=== PATIENT | male | born 1960 | race Caucasian/White ===

== ENCOUNTER 2016-09-05 14:26 | Inpatient (IN) | payer BC ==
[~2016-09-05] VITALS: Ht 185.4 cm; Wt 129.4 kg
[2016-09-05 15:18] LABS: CHLORIDE 102 mEq/L (99-109); POTASSIUM 4.3 mEq/L (3.7-5.4); SODIUM 137 mEq/L (136-147)
[2016-09-05 15:20] LABS: GLUCOSE 282 mg/dL (70-99)
[2016-09-05 15:21] LABS: ANION GAP 9 MEQ/L (2-14)
[2016-09-05 15:24] LABS: GFR ESTIMATE (CALCULATED) 56 mL/min/
[2016-09-05 15:25] LABS: UREA NITROGEN (BUN) 11 mg/dL (9-23)
[2016-09-05 16:44] LABS: EOSINOPHIL (%) 1.9 % (0-5); EOSINOPHIL COUNT 0.1 K/uL (0-0.3); HEMATOCRIT 37.7 % (38.0-50.0); IMMATURE GRANULOCYTE (%) 0.6 % (0.0-0.7); INSTRUMENT ABS NEUTROPHIL CT 5.6 K/uL; LYMPHOCYTE COUNT 0.9 K/uL (1.0-2.8); MCH 28.9 PG (29.0-34.0); MCHC 35.3 G/DL (30.0-36.0); MCV 81.8 FL (86-99); MONOCYTE (%) 7.2 % (3-12); MONOCYTE COUNT 0.5 K/uL (0-0.8); NEUTROPHIL (%) 76.9 % (45-76); NEUTROPHIL COUNT 5.6 K/uL (1.8-6.4); PLATELET COUNT 222 K/uL (156-360); RBC DIS.WIDTH-CV 12.5 % (11.8-14.6); RBC DIS.WIDTH-SD 37.1 % (39-53); RED BLOOD COUNT 4.61 M/uL (4.00-5.50); WHITE BLOOD COUNT 7.2 K/uL (4.1-10.2)
[2016-09-05] MEDS ORDERED: CRESTOR10 MG PO (17:01)
[2016-09-05] MEDS ORDERED: RAMIPRIL2.5 MG PO (17:01)
[2016-09-05] MEDS ORDERED: LO-DOSE ASPIRIN81 M1 PO (17:01)
[2016-09-05 18:04] VITALS: BP 133/77
[2016-09-05 18:11] LABS: COLOR RED ((YELLOW))
[2016-09-05 18:23] LABS: SPECIFIC GRAVITY 1.017 (1.000-1.030)
[2016-09-05 18:24] LABS: ADD MIUA? YES; BILIRUBIN NEGATIVE; BLOOD LARGE; GLUCOSE (STRIP) 500; KETONES NEGATIVE; LEUKOCYTES NEGATIVE; NITRITE NEGATIVE; PROTEIN (STRIP) 100; UROBILINOGEN 0.2 MG/DL (0.2-1.0)
[2016-09-05 18:31] LABS: RED BLOOD CELLS TNTC /HPF (0-5)
[2016-09-05 20:46] LABS: POINT-OF-CARE METER ID UU13113725
[2016-09-05 23:35] VITALS: BP 132/68
[2016-09-06 06:40] LABS: ANION GAP 8 MEQ/L (2-14); CHLORIDE 104 MEQ/L (99-109); GFR ESTIMATE (CALCULATED) > 59 mL/min/; GLUCOSE 203 mg/dL (70-99); POTASSIUM 4.3 MEQ/L (3.7-5.4); SAMPLE HEMOLYSIS CHECK 0; SAMPLE ICTERIC CHECK 0; SAMPLE LIPEMIA CHECK 0; SODIUM 138 MEQ/L (136-147); UREA NITROGEN (BUN) 10 mg/dL (9-23)
[2016-09-06 06:48] LABS: HEMATOCRIT 36.6 % (38.0-50.0); MCV 82.8 FL (86-99); MEAN PLAT.VOLUME 8.6 uM^3 (9.0-12.4); PLATELET COUNT 216 K/uL (156-360); RBC DIS.WIDTH-CV 12.8 % (11.8-14.6); RED BLOOD COUNT 4.42 M/uL (4.00-5.50); WHITE BLOOD COUNT 7.1 K/uL (4.1-10.2)
[2016-09-06 07:32] VITALS: BP 126/75
[2016-09-06 11:55] LABS: POINT-OF-CARE METER ID UU13113725
[2016-09-06 15:42] VITALS: BP 134/81
[2016-09-06 23:07] VITALS: BP 150/67
[2016-09-07 07:34] VITALS: BP 139/75
[2016-09-07] MEDS ORDERED: AMLODIPINE BESYL5 MG PO (11:13)
[2016-09-07] MEDS ORDERED: LEVEMIR100 UNIT/2 SC (11:13)
[2016-09-07] MEDS ORDERED: LEVEMIR FL100 UNIT/1 SC (12:04)
== END 2016-09-07 13:14 | disposition home or self-care (01) | DRG 700 ==
LOC: EME 14:26 → EDOF 16:23 → 5EAST 16:23
PROVIDERS: Hospitalist; Physician Assistant
DX: N28.89 Other specified disorders of kidney and ureter (principal); R33.9 Retention of urine, unspecified; R31.0 Gross hematuria; N13.30 Unspecified hydronephrosis; N17.9 Acute kidney failure, unspecified; I10 Essential (primary) hypertension; E11.65 Type 2 diabetes mellitus with hyperglycemia; E78.5 Hyperlipidemia, unspecified; Z72.0 Tobacco use
CPT/HCPCS: 71260; 74176; 74177; 80048; 81003; 82948; 85025; 85027; 88108; 99281; 99285; J1815; J7030

== ENCOUNTER 2016-09-10 13:25 | Emergency (ER) | payer BC ==
[~2016-09-10] VITALS: Ht 185.4 cm; Wt 127.1 kg
[~2016-09-10 13:25] MED LIST: AMLODIPINE BESYL5 MG PO; CRESTOR10 MG PO; LEVEMIR FL100 UNIT/1 SC; LEVEMIR100 UNIT/2 SC; LO-DOSE ASPIRIN81 M1 PO; RAMIPRIL2.5 MG PO
[2016-09-10 13:47] LABS: HEMATOCRIT 39.5 % (38.0-50.0); MCH 28.8 PG (29.0-34.0); MCHC 34.9 G/DL (30.0-36.0); MCV 82.3 FL (86-99); MEAN PLAT.VOLUME 8.3 uM^3 (9.0-12.4); PLATELET COUNT 270 K/uL (156-360); RBC DIS.WIDTH-CV 12.5 % (11.8-14.6); WHITE BLOOD COUNT 6.6 K/uL (4.1-10.2)
[2016-09-10 13:55] LABS: CHLORIDE 106 mEq/L (99-109); POTASSIUM 4.2 mEq/L (3.7-5.4); SODIUM 140 mEq/L (136-147)
[2016-09-10 13:56] LABS: GLUCOSE 137 mg/dL (70-99)
[2016-09-10 13:58] LABS: ANION GAP 9 MEQ/L (2-14)
[2016-09-10 14:00] LABS: GFR ESTIMATE (CALCULATED) > 59 mL/min/
[2016-09-10 14:01] LABS: UREA NITROGEN (BUN) 18 mg/dL (9-23)
[2016-09-10 14:27] LABS: ADD MIUA? YES; BILIRUBIN NEGATIVE; BLOOD LARGE; COLOR BLOODY ((YELLOW)); GLUCOSE (STRIP) 100; KETONES TRACE; LEUKOCYTES NEGATIVE; NITRITE NEGATIVE; PH, URINE 7.5 (5-8); PROTEIN (STRIP) >300; SPECIFIC GRAVITY 1.015 (1.000-1.030); UROBILINOGEN 0.2 MG/DL (0.2-1.0)
[2016-09-10 14:28] LABS: RED BLOOD CELLS TNTC /HPF (0-5); UCUL ADDED? YES
[2016-09-10 16:34] VITALS: BP 117/87
== END 2016-09-10 16:36 | disposition home or self-care (01) ==
LOC: EME 13:25
DX: R31.9 Hematuria, unspecified (principal); R33.9 Retention of urine, unspecified; Z85.528 Personal history of other malignant neoplasm of kidney; E11.9 Type 2 diabetes mellitus without complications
CPT/HCPCS: 80048; 81003; 85027; 87077; 87086; 87186; 99281; 99284

== ENCOUNTER 2016-09-10 22:37 | Inpatient (IN) | payer BC ==
[~2016-09-10] VITALS: Ht 185.4 cm; Wt 124.5 kg
[2016-09-11 00:21] LABS: HEMATOCRIT 36.9 % (38.0-50.0); MCHC 35.2 G/DL (30.0-36.0); MCV 82.4 FL (86-99); MEAN PLAT.VOLUME 8.6 uM^3 (9.0-12.4); PLATELET COUNT 240 K/uL (156-360); RBC DIS.WIDTH-CV 12.6 % (11.8-14.6); RBC DIS.WIDTH-SD 37.2 % (39-53); RED BLOOD COUNT 4.48 M/uL (4.00-5.50)
[2016-09-11 00:22] LABS: WHITE BLOOD COUNT 10.2 K/uL (4.1-10.2)
[2016-09-11 00:23] LABS: CHLORIDE 107 mEq/L (99-109); POTASSIUM 4.3 mEq/L (3.7-5.4); SODIUM 139 mEq/L (136-147)
[2016-09-11 00:25] LABS: GLUCOSE 187 mg/dL (70-99)
[2016-09-11 00:26] LABS: ANION GAP 8 MEQ/L (2-14)
[2016-09-11 00:29] LABS: GFR ESTIMATE (CALCULATED) > 59 mL/min/
[2016-09-11 00:30] LABS: UREA NITROGEN (BUN) 20 mg/dL (9-23)
[2016-09-11 04:56] VITALS: BP 129/68
[2016-09-11 06:39] LABS: HEMATOCRIT 36.1 % (38.0-50.0); MCH 28.1 PG (29.0-34.0); MCHC 34.1 G/DL (30.0-36.0); MCV 82.6 FL (86-99); MEAN PLAT.VOLUME 8.7 uM^3 (9.0-12.4); PLATELET COUNT 243 K/uL (156-360); RBC DIS.WIDTH-CV 12.8 % (11.8-14.6); RBC DIS.WIDTH-SD 38.3 % (39-53); RED BLOOD COUNT 4.37 M/uL (4.00-5.50); WHITE BLOOD COUNT 9.1 K/uL (4.1-10.2)
[2016-09-11 06:56] VITALS: BP 118/70
[2016-09-11 09:11] LABS: ANION GAP 7 MEQ/L (2-14); CHLORIDE 104 MEQ/L (99-109); GFR ESTIMATE (CALCULATED) > 59 mL/min/; GLUCOSE 155 mg/dL (70-99); POTASSIUM 4.5 MEQ/L (3.7-5.4); SAMPLE HEMOLYSIS CHECK 0; SAMPLE ICTERIC CHECK 0; SAMPLE LIPEMIA CHECK 0; SODIUM 138 MEQ/L (136-147); UREA NITROGEN (BUN) 18 mg/dL (9-23)
[2016-09-11 09:21] LABS: ADD MIUA? YES; BILIRUBIN NEGATIVE; BLOOD LARGE; COLOR RED ((YELLOW)); GLUCOSE (STRIP) NEGATIVE; KETONES 40; LEUKOCYTES NEGATIVE; NITRITE NEGATIVE; PROTEIN (STRIP) 100; SPECIFIC GRAVITY 1.025 (1.000-1.030); UROBILINOGEN 0.2 MG/DL (0.2-1.0)
[2016-09-11 10:00] LABS: RED BLOOD CELLS TNTC /HPF (0-5); UCUL ADDED? YES
[2016-09-11 15:18] VITALS: BP 124/72
[2016-09-11 17:08] LABS: POINT-OF-CARE METER ID UU13113725
[2016-09-11 21:12] LABS: POINT-OF-CARE METER ID UU13113725
[2016-09-11 23:23] VITALS: BP 131/73
[2016-09-12 07:39] VITALS: BP 113/69
[2016-09-12 10:25] VITALS: BP 130/75
[2016-09-12 16:15] LABS: POINT-OF-CARE METER ID UU13113675
[2016-09-12 18:36] VITALS: BP 120/62
[2016-09-12 18:38] LABS: ANION GAP 6 MEQ/L (2-14); CHLORIDE 106 MEQ/L (99-109); GFR ESTIMATE (CALCULATED) > 59 mL/min/; POTASSIUM 4.6 MEQ/L (3.7-5.4); SAMPLE HEMOLYSIS CHECK 0; SAMPLE ICTERIC CHECK 0; SAMPLE LIPEMIA CHECK 0; SODIUM 134 MEQ/L (136-147); UREA NITROGEN (BUN) 18 mg/dL (9-23)
[2016-09-12 18:42] LABS: GLUCOSE 241 mg/dL (70-99)
[2016-09-12 20:09] LABS: HEMATOCRIT 33.9 % (38.0-50.0); MCHC 34.2 G/DL (30.0-36.0); MCV 84.8 FL (86-99); MEAN PLAT.VOLUME 8.8 uM^3 (9.0-12.4); PLATELET COUNT 211 K/uL (156-360); RBC DIS.WIDTH-CV 13.2 % (11.8-14.6); RBC DIS.WIDTH-SD 40.7 % (39-53)
[2016-09-12 20:13] LABS: WHITE BLOOD COUNT 14.8 K/uL (4.1-10.2)
[2016-09-12 20:26] VITALS: BP 118/58
[2016-09-12 23:51] VITALS: BP 135/61
[2016-09-13] VITALS (7 sets, daily range): BP systolic 117–129; BP diastolic 56–70
[2016-09-13 06:50] LABS: HEMATOCRIT 29.3 % (38.0-50.0); MCH 28.8 PG (29.0-34.0); MCHC 33.8 G/DL (30.0-36.0); MCV 85.2 FL (86-99); MEAN PLAT.VOLUME 9.2 uM^3 (9.0-12.4); PLATELET COUNT 203 K/uL (156-360); RBC DIS.WIDTH-CV 13.5 % (11.8-14.6); RBC DIS.WIDTH-SD 41.7 % (39-53); RED BLOOD COUNT 3.44 M/uL (4.00-5.50)
[2016-09-13 07:12] LABS: WHITE BLOOD COUNT 10.3 K/uL (4.1-10.2)
[2016-09-13 07:28] LABS: ANION GAP 5 MEQ/L (2-14); CHLORIDE 107 MEQ/L (99-109); GFR ESTIMATE (CALCULATED) 52 mL/min/; GLUCOSE 165 mg/dL (70-99); POTASSIUM 4.9 MEQ/L (3.7-5.4); SAMPLE HEMOLYSIS CHECK 0; SAMPLE ICTERIC CHECK 0; SAMPLE LIPEMIA CHECK 0; SODIUM 138 MEQ/L (136-147); UREA NITROGEN (BUN) 21 mg/dL (9-23)
[2016-09-13 21:29] LABS: POINT-OF-CARE METER ID UU13113725
[2016-09-14] VITALS (11 sets, daily range): BP systolic 108–151; BP diastolic 57–78
[2016-09-14 06:59] LABS: EOSINOPHIL (%) 1.2 % (0-5); EOSINOPHIL COUNT 0.1 K/uL (0-0.3); HEMATOCRIT 24.3 % (38.0-50.0); IMMATURE GRANULOCYTE (%) 0.8 % (0.0-0.7); IMMATURE GRANULOCYTE COUNT 0.1 K/uL; INSTRUMENT ABS NEUTROPHIL CT 6.9 K/uL; LYMPHOCYTE COUNT 0.8 K/uL (1.0-2.8); MCH 29.1 PG (29.0-34.0); MCHC 32.9 G/DL (30.0-36.0); MCV 88.4 FL (86-99); MEAN PLAT.VOLUME 9.2 uM^3 (9.0-12.4); MONOCYTE (%) 10.1 % (3-12); MONOCYTE COUNT 0.9 K/uL (0-0.8); NEUTROPHIL (%) 78.4 % (45-76); NEUTROPHIL COUNT 6.9 K/uL (1.8-6.4); PLATELET COUNT 154 K/uL (156-360); RBC DIS.WIDTH-CV 13.6 % (11.8-14.6); RBC DIS.WIDTH-SD 43.7 % (39-53); WHITE BLOOD COUNT 8.8 K/uL (4.1-10.2)
[2016-09-14 07:10] LABS: RED BLOOD COUNT 2.75 M/uL (4.00-5.50)
[2016-09-14 07:40] LABS: ANION GAP 9 MEQ/L (2-14); CHLORIDE 107 MEQ/L (99-109); GFR ESTIMATE (CALCULATED) 56 mL/min/; GLUCOSE 138 mg/dL (70-99); POTASSIUM 4.6 MEQ/L (3.7-5.4); SAMPLE HEMOLYSIS CHECK 0; SAMPLE ICTERIC CHECK 0; SAMPLE LIPEMIA CHECK 0; SODIUM 139 MEQ/L (136-147); UREA NITROGEN (BUN) 18 mg/dL (9-23)
[2016-09-15 05:59] LABS: POINT-OF-CARE METER ID UU13113725
[2016-09-15 06:26] LABS: EOSINOPHIL COUNT 0.3 K/uL (0-0.3); HEMATOCRIT 25.5 % (38.0-50.0); IMMATURE GRANULOCYTE (%) 0.8 % (0.0-0.7); IMMATURE GRANULOCYTE COUNT 0.1 K/uL; INSTRUMENT ABS NEUTROPHIL CT 4.9 K/uL; LYMPHOCYTE COUNT 0.8 K/uL (1.0-2.8); MCH 29.1 PG (29.0-34.0); MCHC 34.1 G/DL (30.0-36.0); MCV 85.3 FL (86-99); MEAN PLAT.VOLUME 8.8 uM^3 (9.0-12.4); MONOCYTE (%) 7.9 % (3-12); MONOCYTE COUNT 0.5 K/uL (0-0.8); NEUTROPHIL (%) 74.6 % (45-76); NEUTROPHIL COUNT 4.9 K/uL (1.8-6.4); PLATELET COUNT 158 K/uL (156-360); RBC DIS.WIDTH-CV 13.2 % (11.8-14.6); RED BLOOD COUNT 2.99 M/uL (4.00-5.50); WHITE BLOOD COUNT 6.5 K/uL (4.1-10.2)
[2016-09-15 06:48] LABS: ANION GAP 6 MEQ/L (2-14); CHLORIDE 105 MEQ/L (99-109); GFR ESTIMATE (CALCULATED) > 59 mL/min/; GLUCOSE 134 mg/dL (70-99); SAMPLE HEMOLYSIS CHECK 0; SAMPLE ICTERIC CHECK 0; SAMPLE LIPEMIA CHECK 0; SODIUM 138 MEQ/L (136-147); UREA NITROGEN (BUN) 12 mg/dL (9-23)
[2016-09-15 07:30] VITALS: BP 124/72
[2016-09-15 15:51] LABS: HEMATOCRIT 28.6 % (38.0-50.0); MCV 84.1 FL (86-99)
[2016-09-15 20:47] LABS: POINT-OF-CARE METER ID UU13113725
[2016-09-15 22:48] VITALS: BP 127/68
[2016-09-16 05:56] LABS: HEMATOCRIT 26.4 % (38.0-50.0); MCH 28.8 PG (29.0-34.0); MCHC 34.5 G/DL (30.0-36.0); MCV 83.5 FL (86-99); MEAN PLAT.VOLUME 8.6 uM^3 (9.0-12.4); PLATELET COUNT 195 K/uL (156-360); RBC DIS.WIDTH-SD 39.8 % (39-53); RED BLOOD COUNT 3.16 M/uL (4.00-5.50); WHITE BLOOD COUNT 5.6 K/uL (4.1-10.2)
[2016-09-16 06:23] LABS: ANION GAP 6 MEQ/L (2-14); CHLORIDE 107 MEQ/L (99-109); GFR ESTIMATE (CALCULATED) > 59 mL/min/; GLUCOSE 151 mg/dL (70-99); POTASSIUM 3.7 MEQ/L (3.7-5.4); SAMPLE HEMOLYSIS CHECK 0; SAMPLE ICTERIC CHECK 0; SAMPLE LIPEMIA CHECK 0; SODIUM 137 MEQ/L (136-147); UREA NITROGEN (BUN) 9 mg/dL (9-23)
[2016-09-16 06:54] VITALS: BP 131/76
[2016-09-16 10:51] LABS: POINT-OF-CARE METER ID UU13113725
[2016-09-16 16:14] VITALS: BP 133/69
[2016-09-16 23:19] VITALS: BP 153/77
[2016-09-17 07:18] VITALS: BP 131/78
[2016-09-17] MEDS ORDERED: TRAMADOL HCL50 MG PO (14:10)
[2016-09-17 16:12] VITALS: BP 127/65
== END 2016-09-17 16:05 | disposition home or self-care (01) | DRG 657 ==
LOC: EME 22:37 → EDOF 09-11 03:12 → 5EAST 09-11 03:12
PROVIDERS: Emergency Medicine; Hospitalist; Urology
PROC: 0T9B70Z Drainage of Bladder with Drainage Device, Via Natural or Artificial Opening (ICD-10-PCS; principal; 2016-09-11)
PROC: 07BD0ZX Excision of Aortic Lymphatic, Open Approach, Diagnostic (ICD-10-PCS; 2016-09-12)
PROC: 30233K1 Transfusion of Nonautologous Frozen Plasma into Peripheral Vein, Percutaneous Approach (ICD-10-PCS; 2016-09-12)
PROC: 0TT10ZZ Resection of Left Kidney, Open Approach (ICD-10-PCS; 2016-09-12)
PROC: 30233N1 Transfusion of Nonautologous Red Blood Cells into Peripheral Vein, Percutaneous Approach (ICD-10-PCS; 2016-09-12)
PROC: 07BC0ZX Excision of Pelvis Lymphatic, Open Approach, Diagnostic (ICD-10-PCS; 2016-09-12)
DX: C64.2 Malignant neoplasm of left kidney, except renal pelvis (principal); N02.9 Recurrent and persistent hematuria with unspecified morphologic changes; D62 Acute posthemorrhagic anemia; K56.7 Ileus, unspecified; R33.9 Retention of urine, unspecified; E11.65 Type 2 diabetes mellitus with hyperglycemia; I10 Essential (primary) hypertension; E78.5 Hyperlipidemia, unspecified; R50.9 Fever, unspecified; K59.00 Constipation, unspecified
CPT/HCPCS: 71020; 80048; 80048 91; 81003; 82948; 85014; 85018; 85025; 85027; 86850; 86900; 86901; 86920; 87040; 87077; 87086; 87186; 88305; 88307; 94799; 99281; 99284; 99285; J0131; J0330; J0692; J0696; J1100; J1170; J1815; J2250; J2405; J2710; J2765; J3010; J7030; J7050; P9016; P9017